=== PATIENT | female | born 1995 | race Caucasian/White ===

== ENCOUNTER 2019-07-16 04:45 | Inpatient (IN) ==
[2019-07-16] MEDS ORDERED: CITRIC ACID/SODIUM CITRATE 30 ML UDCUP PO ONE (05:13)
[2019-07-16] MEDS ORDERED: FAMOTIDINE 20 MG/2 ML VIAL IV ONE (05:13)
[2019-07-16] MEDS: LACTATED RINGERS 1,000 ML IV SCH ×2 (05:13→05:52)
[2019-07-16] MEDS ORDERED: ceFAZolin 3,000 MG in SYRINGE 1 EACH IV ONE (05:30)
[2019-07-16] MEDS ORDERED: hydrOXYzine HCL 25 MG/1 ML VIAL IM PRN (05:48)
[2019-07-16] MEDS ORDERED: PROMETHAZINE 25 MG/1 ML VIAL IM PRN (05:48)
[2019-07-16] MEDS ORDERED: diphenhydrAMINE 50 MG/1 ML VIAL IV PRN (05:48)
[2019-07-16] MEDS ORDERED: ONDANSETRON 4 MG/2 ML VIAL IV ONE (05:48)
[2019-07-16 05:54] LABS: Basophils % 0.2 % (0.0-0.8); Eosinophils # 0.1 10*3/uL (0.0-0.87); Eosinophils % 0.5 % (0.00-10.9); Hematocrit 33.2 VOL% (35.7-47.0); Hemoglobin 10.1 GM/DL (12.0-16.0); Immature Granulocytes % 1.4 %; Immature Granulocytes Absolute 0.24 #; Lymphocytes # 3.3 10*3/uL (1.4-4.0); Lymphocytes % 19.3 % (21.3-54.2); Mean Corpuscular HGB Conc 30.4 GM/DL (32-36); Mean Corpuscular Volume 68.7 FL (87-102); Mean Platelet Volume 10.4 FL (9.6-12.0); Monocytes % 6.8 % (1.7-12.7); Neutrophils % 71.8 % (38.7-73.9); Platelet Count 256 T/CUMM (130-400); Red Blood Count 4.83 MC/CUMM (3.8-5.5); White Blood Count 16.9 T/CUMM (4-12)
[2019-07-16] MEDS ORDERED: LACTATED RINGERS 1,000 ML IV SCH (06:00)
[2019-07-16 06:02] LABS: INR 0.9; PT Patient Result 9.4 SECS (9.6-12.2)
[2019-07-16 06:16] LABS: Alanine Aminotransferase 16 U/L (13-56); Albumin 2.4 G/DL (3.4-5.0); Alkaline Phosphatase 174 U/L (45-117); Aspartate Amino Transferase 12 U/L (0-37); Bilirubin,Total < 0.39 MG/DL (0.2-1.0); Blood Urea Nitrogen 9 MG/DL (7-18); Calcium 8.5 MG/DL (8.5-10.1); Estimated Glom Filtration Rate 161 ML/MIN; Glucose 103 MG/DL (74-106); Total Protein 7.5 G/DL (6.4-8.3)
[2019-07-16] MEDS ORDERED: propofoL 200 MG/20 ML VIAL IV ONE (06:41)
[2019-07-16] MEDS ORDERED: MORPHINE 10 MG/10 ML VIAL ONE (06:41)
[2019-07-16] MEDS ORDERED: fentaNYL 100 MCG/2 ML VIAL ONE (06:41)
[2019-07-16] MEDS ORDERED: BUPIVACAINE SPINAL 0.75% 2 ML AMP SPINAL ONE (06:41)
[2019-07-16] MEDS ORDERED: ONDANSETRON 4 MG/2 ML VIAL ONE (06:41)
[2019-07-16] MEDS ORDERED: ACETAMINOPHEN 1,000 MG/100 ML VIAL IV ONE (06:42)
[2019-07-16] MEDS ORDERED: KETOROLAC 30 MG/1 ML VIAL ONE (06:42)
[2019-07-16] MEDS ORDERED: LACTATED RINGERS 1,000 ML IV ONE ×2 (06:42→09:50)
[2019-07-16] MEDS ORDERED: OXYTOCIN/LR 20 UNIT/1,000 ML BAG IV ONE (07:00)
[2019-07-16 08:27] LABS: Apearance,Urine CLEAR (Clear); Bacteria,Urine Occasional /HPF (Few); Bilirubin,Urine Negative (Negative); Blood, Urine Moderate mg/dL (Negative); Glucose,Urine (UA) Negative (Negative); Hyaline Casts,Urine 1 /LPF (0-3); Ketones,Urine Negative (Negative); Mucus,Urine Occasional /LPF (Occasional); Nitrite,Urine Negative (Negative); Protein,Urine Negative; RBC,Urine 5 /HPF (0-4); Squamous Epithelial Cell,Urine Occasional /HPF (0-10); Urine Color Yellow (Yellow); Urine Specific Gravity 1.018 (1.001-1.035); Urine Urobilinogen < 2.0 EU/DL (0.2-1.0); WBC,Urine <1 /HPF (0-6)
[2019-07-16] MEDS ORDERED: MIDAZOLAM 2 MG/2 ML VIAL ONE (09:04)
[2019-07-16] MEDS ORDERED: GLYCOPYRROLATE 0.4 MG/2 ML VIAL IM ONE (09:40)
[2019-07-16] MEDS ORDERED: NEOSTIGMINE 10 MG/10 ML VIAL ONE (09:50)
[2019-07-16] MEDS ORDERED: SUCCINYLCHOLINE 200 MG/10 ML VIAL ONE (09:50)
[2019-07-16] MEDS ORDERED: ROCURONIUM 100 MG/10 ML VIAL IV ONE (09:50)
[2019-07-16] MEDS: ceFAZolin 2,000 MG in PREMIX 1 EACH IV SCH (16:33)
[2019-07-16] MEDS ORDERED: LANOLIN 50% CREAM 0.3 OZ TUBE TOP PRN (17:34)
[2019-07-16] MEDS ORDERED: WITCH HAZEL PADS 100/JAR TOP PRN (17:34)
[2019-07-16] MEDS ORDERED: ACETAMINOPHEN 325 MG TABLET PO PRN (17:34)
[2019-07-16] MEDS ORDERED: HYDROCORTISONE 2.5% RECTAL CREAM 30 GM TUBE TOP PRN (17:34)
[2019-07-16] MEDS ORDERED: DIPH/TET/ACEL PERT BOOSTER VACCINE 0.5 ML VIAL IM ONE (17:34)
[2019-07-16] MEDS ORDERED: oxyCODONE/ACETAMINOPHEN 5-325 MG TABLET PO PRN (17:34)
[2019-07-16] MEDS ORDERED: BISACODYL 10 MG SUPP RECTAL PRN (17:34)
[2019-07-16] MEDS ORDERED: ONDANSETRON 4 MG/2 ML VIAL IV PRN (17:34)
[2019-07-16] MEDS: oxyCODONE/ACETAMINOPHEN 5-325 MG TABLET PO PRN ×2 (17:52→23:56)
[2019-07-16] MEDS: IBUPROFEN 800 MG TABLET PO PRN (23:56)
[2019-07-16] MEDS: DOCUSATE SODIUM 100 MG CAPSULE PO SCH (23:59)
[2019-07-17] MEDS: ceFAZolin 2,000 MG in PREMIX 1 EACH IV SCH (00:01)
[2019-07-17 05:50] LABS: Basophils % 0.2 % (0.0-0.8); Eosinophils # 0.1 10*3/uL (0.0-0.87); Eosinophils % 0.9 % (0.00-10.9); Hematocrit 28.4 VOL% (35.7-47.0); Immature Granulocytes % 1.1 %; Immature Granulocytes Absolute 0.14 #; Lymphocytes # 2.9 10*3/uL (1.4-4.0); Lymphocytes % 22.9 % (21.3-54.2); Mean Corpuscular HGB Conc 28.5 GM/DL (32-36); Mean Corpuscular Volume 71.9 FL (87-102); Mean Platelet Volume 9.9 FL (9.6-12.0); Monocytes % 7.1 % (1.7-12.7); Neutrophils % 67.8 % (38.7-73.9); Platelet Count 185 T/CUMM (130-400); Red Blood Count 3.95 MC/CUMM (3.8-5.5); Red Cell Distribution Width 18.6 % (9.3-17.3); White Blood Count 12.8 T/CUMM (4-12)
[2019-07-17 06:17] LABS: Hemoglobin 8.1 GM/DL (12.0-16.0)
[2019-07-17 06:20] LABS: Hypochromasia 1+; Ovalocytes Slight; Platelet Estimate Adequate
[2019-07-17 06:21] LABS: Microcytosis Slight
[2019-07-17] MEDS: MAGNESIUM HYDROXIDE SUSP 30 ML UDCUP PO PRN ×2 (08:26→20:32)
[2019-07-17] MEDS: DOCUSATE SODIUM 100 MG CAPSULE PO SCH ×2 (08:27→20:32)
[2019-07-17] MEDS: oxyCODONE/ACETAMINOPHEN 5-325 MG TABLET PO PRN ×2 (08:27→18:29)
[2019-07-17] MEDS: SIMETHICONE CHEW 80 MG TABLET PO PRN ×2 (08:27→20:32)
[2019-07-17] MEDS: MULTIVITAMIN (PRENATAL) TABLET PO SCH (08:27)
[2019-07-17] MEDS: IBUPROFEN 800 MG TABLET PO PRN ×2 (08:37→18:29)
[2019-07-17] MEDS: FERROUS SULFATE 325 MG TABLET PO SCH (20:32)
[2019-07-17] MEDS: guaiFENesin 200 MG/10 ML UDCUP PO PRN (20:33)
[2019-07-18] MEDS: guaiFENesin 200 MG/10 ML UDCUP PO PRN (00:45)
[2019-07-18] MEDS: IBUPROFEN 800 MG TABLET PO PRN (02:14)
[2019-07-18 07:58] VITALS: BP 125/77
[2019-07-18] MEDS: DOCUSATE SODIUM 100 MG CAPSULE PO SCH (09:20)
[2019-07-18] MEDS: FERROUS SULFATE 325 MG TABLET PO SCH (09:21)
[2019-07-18] MEDS: MULTIVITAMIN (PRENATAL) TABLET PO SCH (09:21)
[2019-07-18] MEDS: MAGNESIUM HYDROXIDE SUSP 30 ML UDCUP PO PRN (09:21)
[2019-07-18] MEDS: SIMETHICONE CHEW 80 MG TABLET PO PRN (09:24)
== END 2019-07-18 09:30 | disposition home or self-care (01) | DRG 540 ==
LOC: N.LD 04:45 → N.OB 12:10
PROVIDERS: ADMIT Specialist; ATTEND Specialist
PROC: LDCSECT (ICD-10-PCS; 2019-07-16 07:30)